=== PATIENT | female | born 1985 | race Hispanic/Latino ===

== ENCOUNTER 2021-07-12 09:09 | Emergency (ER) | payer BC, OTHER ==
[~2021-07-12] VITALS: Ht 154.9 cm; Wt 49.0 kg
[2021-07-12] MEDS ORDERED: AMOXICILLIN 250MG/5ML SUSP 80ML PO SCH (10:00)
[2021-07-12] MEDS ORDERED: TETANUS/DIPHTHERIA TOXOID [ADULT] 0.5 ML VIAL IM SCH (10:00)
[2021-07-12] MEDS ORDERED: IBUPROFEN 600 MG TABLET PO SCH (10:00)
[2021-07-12] MEDS ORDERED: IBUPROFEN 600 MG TABLET ONE (10:02)
[2021-07-12] MEDS ORDERED: AMOXICILLIN 250MG/5ML SUSP 80ML ONE (10:02)
[2021-07-12] MEDS ORDERED: TETANUS/DIPHTHERIA TOXOID [ADULT] 0.5 ML VIAL IM ONE (10:05)
[2021-07-12] MEDS ORDERED: AMOX250L PO (10:31)
[2021-07-12 10:44] VITALS: BP 108/74
== END 2021-07-12 10:45 | disposition home or self-care (01) ==
LOC: EDH 09:09
DX: S71.151A Open bite, right thigh, initial encounter (principal); W54.0XXA Bitten by dog, initial encounter; Y93.89 Activity, other specified; Y92.89 Other specified places as the place of occurrence of the external cause; Y99.8 Other external cause status
CPT/HCPCS: 73552; 90471; 90714